=== PATIENT | female | born 1980 | race African-American/Black ===

== ENCOUNTER 2016-10-06 06:55 | Inpatient (IN) | payer OTHER ==
[2016-10-06] MEDS ORDERED: ELECTROLYTE-148 SOLN 1,000 ML IV SCH ×2 (07:45→09:00)
[2016-10-06 07:52] VITALS: BMI 38.3
[2016-10-06] MEDS ORDERED: CITRIC ACID/SODIUM CITRATE 30 ML UNIT-DOSE CUP PO ONE (08:12)
--- NOTE | 2016-10-06 08:25 | HP ---
Past Medical History - Admission Chief Complaint: Here for repeat c section History of Present Illness: 36 y/o with SIUP at 39 weeks gestation here for scheduled repeat section. Pt with h/o 3 prior sections. complicated only by asthma - well controlled. +FM, no VB/LOF/CTx today. History Source: Patient, Medical Record Limitations to Obtaining History: No Limitations - Past Medical History Cardiovascular: No: AFIB, HTN Gastrointestinal: No: Constipation, GERD ...: 6 ...Para: 3 ...Term: 3 ...: 0 ...Spon : 1 ...Induced : 1 ...Multiple Gestation: 0 ...LMP: 01/18/16 ... Weeks Gestation by Dates: 37 ...EDC by Dates: 10/27/16 ...EDC by Sono: 10/13/16 Heme/Onc: Yes: Anemia (0) Infectious Disease: No: AIDS, HIV Psych: Yes: Other (pt with h/o of daughter/father in car accident) Endocrine: No: Diabetes Mellitus, Hypothyroidism - Past Surgical History Past Surgical History: Yes: (X3) Hx Myomectomy: No Hx Transabdominal Cerclage: No - Smoking History Smoking history: Never smoked - Alcohol/Substance Use Hx Alcohol Use: No - Social History Usual Living Arrangement: Yes: With Spouse ADL: Independent History of Recent Travel: No Home Medications - Allergies Allergies/Adverse Reactions: Allergies Allergy/AdvReac Type Severity Reaction Status Date / Time walnut AdvReac Mild Itching Verified 10/06/16 07:37 - Home Medications Home Medications: Ambulatory Orders Albuterol Sulfate Inhaler - [Ventolin Hfa Inhaler -] 1 puff IH PRN 09/29/16 Review of Systems - Review of Systems Constitutional: reports: No Symptoms Eyes: reports: No Symptoms HENT: reports: No Symptoms Neck: reports: No Symptoms Cardiovascular: reports: No Symptoms Respiratory: reports: No Symptoms Gastrointestinal: reports: No Symptoms Genitourinary: reports: No Symptoms Breasts: reports: No Symptoms Reported Musculoskeletal: reports: No Symptoms Integumentary: reports: No Symptoms Neurological: reports: No Symptoms Endocrine: reports: No Symptoms Hematology/Lymphatic: reports: No Symptoms Psychiatric: reports: No Symptoms Physical Exam - Maternity Vital Signs: Vital Signs Temperature 97.6 F 01/25/17 07:40 Pulse Rate 75 10/06/16 07:40 Respiratory Rate 18 10/06/16 07:40 Blood Pressure 102/67 10/06/16 07:40 O2 Sat by Pulse Oximetry (%) Constitutional: Yes: Well Nourished, No Distress, Calm HENT: Yes: Atraumatic, Normocephalic Neck: Yes: Supple, Trachea Midline Cardiovascular: Yes: Regular Rate and Rhythm Lungs: Clear to auscultation - Abdominal Exam/OB Fundal Height: 40 Number of Fetuses: Single Presentation: Vertex Contractions: No Category: I - Vaginal Exam/OB Amniotic Membrane Status: Intact - Physical Exam Psychiatric: Yes: Alert, Oriented Hemorrhage Risk Assessment - Risk Factors Medium Risk Factors: Yes: Prior , uterine surgery,or multiple laparotomies High Risk Factors: Yes: None Risk Score: 1 Risk Level: Medium Risk Assessment/Plan 36 y/o with h/o 3 prior sections here for scheduled repeat section - FHTS cat 1 - admit to L&D - start IV fluids, NPO, SCDs, anesthesia and nursing aware - Moreno catheter - routine care
[2016-10-06] MEDS ORDERED: METHYLERGONOVINE MALEATE 0.2 MG/1 ML AMP IM PRN (10:05)
[2016-10-06] MEDS ORDERED: IBUPROFEN 600 MG TABLET (FP) PO PRN (10:05)
[2016-10-06] MEDS ORDERED: OXYTOCIN 20 UNITS in 0.9% NS 1,000 ML IV SCH (10:15)
[2016-10-06] MEDS ORDERED: morphine SULFATE/Preservative Free 0.5 MG/ML (1cc Syringe) EP ONE (10:20)
[2016-10-06] MEDS ORDERED: ONDANSETRON 4 MG/2 ML VIAL IVPB PRN (10:20)
--- NOTE | 2016-10-06 11:18 | OP ---
Operative Note - Note: Operative Date: 10/06/16 Operation: repeat low transverse section Findings: gravid uterus normal b/l tubes and ovaries Post-Operative Diagnosis: Same as Pre-op Surgeon: Chloe Fortune Volleyball Assistant Coach: Shy Nguyen Anesthesiologist/TELECOMMUNICATOR SUPERVISOR: Catarino Green Anesthesia: Spinal Estimated Blood Loss (mls): 800 Operative Report Dictated: Yes
--- NOTE | 2016-10-06 11:19 | PN ---
Delivery - Delivery Section: Repeat Type of Anesthesia: Spinal Episiotomy/Laceration: None EBL (cc): 800 Delivery, Single - Stages of Labor Date of Delivery: 10/06/16 Time of Delivery: 09:23 Time Placenta Delivered: :24 Placenta: Yes: Manual Removal - Condition of Fat Purification Worker/Appeals Court Associate Justice Present: Yes Name: Anabell Brar Gender: Female Weight: 6 lb 15 oz Position: Right, OT Total Hours ROM (Hrs/Mins): 3 Minutes - 1 Minute Total Score: 9 5 Minutes Total Score: 9 - Feeding Plan Initial Plan: Exclusive throughout hospitalization Remarks - Remarks Remarks: Uncomplicated repeat c section.
[2016-10-06] MEDS: IBUPROFEN 800 MG/8 ML IJ IVPB PRN ×2 (12:02→21:32)
[2016-10-06] MEDS ORDERED: TUBERCULIN PPD 5 TU/0.1ML SYRINGE (IN PATIENT USE ONLY) ID ONE (16:30)
[2016-10-06] MEDS: CEFAZOLIN 1 GM/D5W 50 ML IVPB SCH (17:34)
[2016-10-06] MEDS: SODIUM CHLORIDE 0.9%/KCL 1,000 ML IV SCH (20:00)
[2016-10-06] MEDS: POTASSIUM CHLORIDE TABS 20 MEQ TABLET.ER (FP) PO SCH (21:33)
[2016-10-07] MEDS: CEFAZOLIN 1 GM/D5W 50 ML IVPB SCH ×2 (01:44→10:33)
[2016-10-07] MEDS: ACETAMINOPHEN 325 MG TABLET (FP) PO PRN ×2 (04:30→13:29)
[2016-10-07] MEDS: IBUPROFEN 600 MG TABLET (FP) PO PRN ×3 (04:30→19:15)
[2016-10-07 07:33] LABS: BASOPHIL 0.6 % (0-2.0); MCH 25.9 pg (25.7-33.7); MCHC 32.7 g/dl (32.0-36.0); MEAN CELL VOLUME 79.2 fl (80-96); MEAN PLT VOLUME 9.2 fl (7.5-11.1); NEUTROPHILS 81.6 % (42.8-82.8); PLATELET COUNT 177 K/MM3 (134-434); RDW 14.5 % (11.6-15.6)
[2016-10-07] MEDS ORDERED: ALBUTEROL SO4 6.7 GM HFA INHALER IH PRN (07:45)
--- NOTE | 2016-10-07 08:00 | PN ---
Post Progress Note - Subjective Subjective: 36 yo Para 4, status post repeat , seen and evaluated. She c/o difficulty in breathing; h/o Asthma. Type of Delivery: Repeat C/S Vital Signs: Vital Signs Temperature 97.9 F 10/07/16 06:00 Pulse Rate 82 10/07/16 06:00 Respiratory Rate 20 10/07/16 06:00 Blood Pressure 94/56 10/07/16 06:00 O2 Sat by Pulse Oximetry (%) 99 10/06/16 10:45 Breast Exam: Yes: Soft Uterus: Yes: Fundus Firm Incision: Yes: Dressing dry and intact Abdomen/GI: Yes: Abdomen soft Lochia: Yes: Rubra Lochia, amount: Small Extremities: Yes: Calves non-tender Perineum: Yes: Intact Activity: Other (Lying in bed) Assessment/Plan Status post repeat Personal h/o Asthma Albuterol inhaler Ambulation Analgesia PRN pain Continue Post op care
[2016-10-07] MEDS: SODIUM CHLORIDE 0.9%/KCL 1,000 ML IV SCH ×2 (08:05→11:24)
[2016-10-07] MEDS: IBUPROFEN 800 MG/8 ML IJ IVPB PRN (08:22)
[2016-10-07] MEDS ORDERED: DIPHTH,PERTUSS(ACELL),TET 0.5 ML DISP.SYRIN IM ONE (10:00)
[2016-10-07] MEDS ORDERED: BISACODYL 10 MG SUPP.RECT RC PRN (10:05)
[2016-10-07] MEDS: POTASSIUM CHLORIDE TABS 20 MEQ TABLET.ER (FP) PO SCH ×2 (10:33→22:02)
--- NOTE | 2016-10-07 12:16 | OP ---
DATE OF OPERATION: 10/06/2016 PREOPERATIVE DIAGNOSIS: History of prior section. POSTOPERATIVE DIAGNOSIS: History of prior section. PROCEDURE: Repeat low transverse section. SURGEON: Chloe Fortune DO ASSISTANT WOMENS VOLLEYBALL COACH: Shy Nguyen MD ANESTHESIA: Spinal anesthesia administered by Catarino Green MD ESTIMATED BLOOD LOSS: 800 mL. SPECIMENS: Included placenta and cord blood collection. COMPLICATIONS: None. Sponge, needle, and instrument count correct. FINDINGS: Included normal bilateral tubes and ovaries, gravid uterus. Otherwise, normal female anatomy. DISPOSITION: Stable to PACU. BRIEF HISTORY AND PROCEDURE: The patient is a 36-year-old female with a history of 3 prior sections who had been counseled on her options in the office and elected to undergo a repeat section on October 06, 2016. The patient was admitted on October 06, 2016. Consents were signed. The patient was then taken back to the operating room where she was given spinal anesthesia by Dr. Green without difficulty. A Moreno catheter was placed under sterile conditions, and the patient was prepped and draped in the usual sterile fashion. A hard time-out was performed. A Pfannenstiel skin incision was then created in the skin with a scalpel and carried to the underlying layer of rectus fascia with the scalpel as well as with the Bovie. The fascia was tented up, and the rectus muscles were dissected off from the rectus fascia with the Bovie and midline of the rectus muscles identified, elevated, and entered sharply, and then the peritoneum was dissected sharply to allow for adequate room for delivery. The bladder blade was inserted. A transverse incision was then created on the uterus, which was carried in a superolateral direction bluntly. The was then delivered from the right occiput transverse position, without difficulty. The shoulders and body delivered without incident. The cord was clamped twice and cut in between, and the infant was taken over to the warmer to be assessed by Neonatology staff. The Apgars were 9/9. cord blood was collected. The placenta was then delivered manually. The uterus was exteriorized from the abdomen, inspected, and cleared of all amniotic membrane and debris with a dry lap sponge. The hysterotomy was reapproximated in a single- layer closure using 1 Vicryl suture, and several [id number] interrupted sutures were used for hemostasis. The posterior cul-de-sac was suctioned. Bilateral tubes and ovaries were noted to be normal. The uterus was placed back into the abdomen. Bilateral gutters were inspected and cleared of all debris. The peritoneum was reapproximated using 3-0 Vicryl in a running fashion. The musculature was reapproximated in a single interrupted suture. The fascia was reapproximated using 1 Vicryl in a running fashion. The subcutaneous tissue was irrigated and reapproximated using a Biosyn suture and then the skin was reapproximated using 3-0 Vicryl in a subcuticular fashion. The patient tolerated the procedure well and is recovering in stable condition in at the time of this dictation. Sponge, needle, and instrument count was reported to be correct. CHLOE FORTUNE DO /[id number] MTDD
[2016-10-07] MEDS: SIMETHICONE 80 MG TAB.CHEW (FP) PO PRN ×2 (13:27→19:16)
--- NOTE | 2016-10-07 14:57 | PN ---
Progress Note (short form) - Note Progress Note: Anesthesia POD#1 S/P under spinal anesthesia and duramoph Patient is doing well,no N/V,moving extremities well VSS No complication to anesthesia seen. Danyelle Najera.
[2016-10-07] MEDS: oxyCODONE HCL 5 MG TABLET PO PRN ×2 (15:01→19:15)
[2016-10-08] MEDS: oxyCODONE HCL 5 MG TABLET PO PRN ×5 (00:22→21:58)
[2016-10-08] MEDS: SIMETHICONE 80 MG TAB.CHEW (FP) PO PRN ×4 (00:22→21:57)
[2016-10-08] MEDS: IBUPROFEN 600 MG TABLET (FP) PO PRN ×4 (00:22→21:58)
[2016-10-08 08:35] LABS: CREATININE 0.6 mg/dL (0.55-1.02)
[2016-10-08] MEDS: POTASSIUM CHLORIDE TABS 20 MEQ TABLET.ER (FP) PO SCH ×2 (09:50→21:53)
--- NOTE | 2016-10-08 13:01 | PN ---
Post Progress Note - Subjective Subjective: Pt seen/evaluated and doing well. Pain controlled, ambulating, voiding, tolerating diet. No CP/SOB/F/C/FERRIS. VB minimal. Type of Delivery: Repeat C/S Vital Signs: Vital Signs Temperature 97.6 F 10/08/16 08:44 Pulse Rate 85 10/08/16 08:44 Respiratory Rate 18 10/08/16 08:44 Blood Pressure 115/70 10/08/16 08:44 O2 Sat by Pulse Oximetry (%) 99 10/06/16 10:45 Breast Exam: Yes: Soft Uterus: Yes: Fundus below umbilicus Incision: Yes: Sutures intact Abdomen/GI: Yes: Passing flatus, Tolerating PO. No: Abdominal Distention, Tender Lochia: Yes: Rubra Lochia, amount: Small Extremities: Yes: Calves non-tender, Edema (trace LE edema) Perineum: Yes: Intact Activity: Ambulating - Labs Labs: CBC WBC 13.0 K/mm3 (4.0-10.0) H 10/07/16 06:45 RBC 3.67 M/mm3 (3.60-5.2) 10/07/16 06:45 Hgb 9.5 GM/dL (10.7-15.3) L 10/07/16 06:45 Hct 29.0 % (32.4-45.2) L 10/07/16 06:45 MCV 79.2 fl (80-96) L 10/07/16 06:45 MCHC 32.7 g/dl (32.0-36.0) 10/07/16 06:45 RDW 14.5 % (11.6-15.6) 10/07/16 06:45 Plt Count 177 K/MM3 (134-434) 10/07/16 06:45 MPV 9.2 fl (7.5-11.1) 10/07/16 06:45 Neutrophils % 81.6 % (42.8-82.8) 10/07/16 06:45 Lymphocytes % 8.4 % (8-40) D 10/07/16 06:45 Monocytes % 5.4 % (3.8-10.2) 10/07/16 06:45 Eosinophils % 4.0 % (0-4.5) 10/07/16 06:45 Basophils % 0.6 % (0-2.0) 10/07/16 06:45 Assessment/Plan 36 y/o POD#2 s/p repeat section, stable - AFVSS - Hgb 9.5 post op, pt stable, continue vitamins - regular diet, PO pain meds, - ambulation - discharge home in a.m.
--- NOTE | 2016-10-08 13:01 | DS ---
Physical Exam-MEDICAL RECORDS TECH Vital Signs: Vital Signs Temperature 97.6 F 10/08/16 08:44 Pulse Rate 85 10/08/16 08:44 Respiratory Rate 18 10/08/16 08:44 Blood Pressure 115/70 10/08/16 08:44 O2 Sat by Pulse Oximetry (%) 99 10/06/16 10:45 Constitutional: Yes: Well Nourished, No Distress, Calm Eyes: Yes: Conjunctiva Clear, EOM Intact HENT: Yes: Atraumatic, Normocephalic Neck: Yes: Supple, Trachea Midline Cardiovascular: Yes: Regular Rate and Rhythm Respiratory: Yes: Regular, CTA Bilaterally Gastrointestinal: Yes: Normal Bowel Sounds, Soft ....Post : Yes: Uterus firm, Uterus non-tender Wound/Incision: Yes: Clean/Dry, Well Approximated, Sutures Intact Neurological: Yes: Alert, Oriented Psychiatric: Yes: Alert, Oriented Labs: CBC, BMP 10/07/16 06:45 10/08/16 06:00 Delivery - Delivery Section: Repeat, Low Flap Transverse Type of Anesthesia: Spinal Episiotomy/Laceration: None EBL (cc): 800 Delivery, Single - Stages of Labor Date of Delivery: 10/06/16 Time of Delivery: 09:23 Time Placenta Delivered: 09:24 Placenta: Yes: Manual Removal - Condition of Escort Car Driver/Actuarial Technician Present: Yes Name: Anabell Brar Gender: Female Weight: 6 lb 15 oz Position: Right, OT Total Hours ROM (Hrs/Mins): 3 Minutes - 1 Minute Total Score: 9 5 Minutes Total Score: 9 - Feeding Plan Initial Plan: Exclusive throughout hospitalization Discharge Summary Reason For Visit: ADMIT C/SECTION Procedures: Principal: repeat section Hospital Course: Patient admitted on 10/06/16 for scheduled repeat section. Pt underwent uncomplicated procedure (see dictated op report). The patient recovered without incident and met all post op milestones by post op day 3. The patient was tolerating diet, ambulating, voiding and passing flatus and was discharged home in stable condition on post op day 3. Condition: Good - Instructions Diet, Activity, Other Instructions: Physical activity Resume your normal everyday activity as tolerated no heavy lifting or exercise until seen by your surgeon. You may walk unlimited julieta of and climb stairs. You may resume driving the car when you feel safe and comfortable behind the wheel. No sexual activity as instructed. Wound care If you have a bandage, leave it on, and keep dry for 48-72 hours. After that time discard the outer bandage. If they are tapes on the skin under the out of bandage leave them in place. They will peel off in the next 7 to 10 days. Do Not Peel them off. You may shower the day after surgery. If there are tapes present on the skin, you may shower over them. Diet There are no dietary restrictions. Eat healthy, high-fiber foods. Drink 6 to 8 glasses of liquid each day. This will assist in keeping your bowels are regular. Pain management You may take Tylenol or acetaminophen or Ibuprofen (for example, Motrin, Advil etc.) from my pain prescription medication is ordered should be taken as prescribed for moderate to severe pain. Call MD for any of the following: Severe pain not relieved by medication Fever of 101 or higher Excessive bleeding or drainage on dressing Inability to urinate Referrals: Chloe Fortune DO [Staff Physician] - Disposition: HOME - Home Medications Comprehensive Discharge Medication List: Ambulatory Orders Albuterol Sulfate Inhaler - [Ventolin Hfa Inhaler -] 1 puff IH PRN 09/29/16
[2016-10-08] MEDS: ACETAMINOPHEN 325 MG TABLET (FP) PO PRN (15:16)
[2016-10-09] MEDS: SODIUM CHLORIDE 0.9%/KCL 1,000 ML IV SCH (01:22)
[2016-10-09] MEDS: ACETAMINOPHEN 325 MG TABLET (FP) PO PRN ×2 (01:37→12:03)
[2016-10-09] MEDS: SIMETHICONE 80 MG TAB.CHEW (FP) PO PRN ×3 (01:37→12:04)
[2016-10-09] MEDS: oxyCODONE HCL 5 MG TABLET PO PRN ×2 (01:38→08:13)
[2016-10-09 07:31] LABS: BASOPHIL 0.8 % (0-2.0); EOSINOPHIL 7.1 % (0-4.5); MCH 25.9 pg (25.7-33.7); MCHC 32.7 g/dl (32.0-36.0); MEAN CELL VOLUME 79.3 fl (80-96); MEAN PLT VOLUME 9.4 fl (7.5-11.1); NEUTROPHILS 69.9 % (42.8-82.8); PLATELET COUNT 173 K/MM3 (134-434); RDW 14.8 % (11.6-15.6); WHITE BLOOD COUNT 8.9 K/mm3 (4.0-10.0)
[2016-10-09] MEDS: IBUPROFEN 600 MG TABLET (FP) PO PRN ×2 (08:13→12:03)
[2016-10-09 08:27] VITALS: BP 126/70; PULSE 79; TEMP 97.2
[2016-10-09] MEDS: POTASSIUM CHLORIDE TABS 20 MEQ TABLET.ER (FP) PO SCH (09:32)
--- NOTE | 2016-10-12 14:11 | PATH ---
Surgical Pathology Report Patient Name: ALETHEA BOYCE Med. Rec. #: [id number] /Age/Gender: 1980 (Age: 36) / F Account: [id number] Location: [facility] OBS/PACKAGING CLERK Taken: 10/06/2016 Received: 10/07/2016 Reported: 10/12/2016 Physicians: Chloe Fortune M.D. Specimen(s) Received PLACENTA Clinical History Previous c/section x3 2004, 2006, 2011, 39 weeks gestation Scheduled repeat c/section Final Diagnosis PLACENTA, DELIVERY: FOCALLY DISRUPTED THIRD TRIMESTER PLACENTA WITH MILD INCREASE IN PREVILLOUS, PERIVILLOUS, AND PRECHORIONIC FIBRIN DEPOSITION, THREE VESSEL UMBILICAL CORD, AND PLACENTAL MEMBRANES WITH FOCAL AMNION HYPERPLASIA. Electronically Signed Brian Maria M.D. Gross Description The specimen is received fresh, labeled "placenta" and is a 459 gram, 16.5 x 15.0 x 2.7 cm placenta with attached membranes and umbilical cord. The attached membranes are norman, thickened and insert marginally. The umbilical cord measures 34 cm in length and averages 0.9 cm in diameter. The cord inserts eccentrically, 5 cm. to the nearest margin. No true knots or strictures are identified. Cut surface of the umbilical cord reveals 3 vessels. The surface is ferrer-blue with fibrin deposition and appropriate caliber vessels. The maternal surface is red-brown with focal defects. Sectioning reveals red-brown, spongy parenchyma. No focal lesions are identified. [employer] Cable Jointer sections are submitted in three cassettes as follows: 1- membrane rolls and umbilical cord; 2-3- full thickness sections of placenta. 10/11/2016 [facility]
== END 2016-10-09 14:00 | disposition home or self-care (01) | DRG 540 ==
LOC: JLDR 06:55 → J3W 11:21
PROVIDERS: ADMIT Obstetrics & Gynecology; ATTEND Obstetrics & Gynecology
PROC: 10D00Z1 Extraction of Products of Conception, Low, Open Approach (ICD-10-PCS; principal; 2016-10-06)
DX: O34.211 Maternal care for low transverse scar from previous cesarean delivery (principal); O75.89 Other specified complications of labor and delivery; J45.909 Unspecified asthma, uncomplicated; Z3A.39 39 weeks gestation of pregnancy; Z37.0 Single live birth
CPT/HCPCS: 36415; 80048; 84132; 85025; 88307-TC; 90715

== ENCOUNTER 2017-10-24 06:05 | Inpatient (IN) | payer OTHER ==
[~2017-10-24 06:05] MED LIST: CITRIC ACID/SODIUM CITRATE 30 ML UNIT-DOSE CUP PO ONE; ELECTROLYTE-148 SOLN 500 ML IV ONE
[2017-10-24] MEDS ORDERED: ELECTROLYTE-148 SOLN 1,000 ML IV SCH ×2 (06:35→07:15)
[2017-10-24 06:38] VITALS: BMI 37.5
[2017-10-24] MEDS ORDERED: METHYLERGONOVINE MALEATE 0.2 MG/1 ML AMP IM PRN (07:15)
[2017-10-24] MEDS ORDERED: BENZOCAINE 20% 57 GM BOTTLE TP PRN (07:15)
[2017-10-24] MEDS ORDERED: BENZOCAINE 28 GM HEMORRHOIDAL OINTMENT PR PRN (07:15)
[2017-10-24] MEDS ORDERED: WITCH HAZEL 50% (TUCKS) 40 PAD/JAR PAD TP PRN (07:15)
[2017-10-24] MEDS ORDERED: diphenhydrAMINE HCL 25 MG CAPSULE (FP) PO PRN (07:15)
--- NOTE | 2017-10-24 07:26 | HP ---
Past Medical History - Primary Care Physician PCP:: Shy Nguyen - Admission Chief Complaint: Previous Sectionx 4. voluntary sterilization. multiparity History of Present Illness: 37 yo g7 P 4 023 with previous CS x 4 EDC 10/29/17 ega 39.1 week admitted for elective section no rom no bleeding no FERRIS Pt had 8 yo at age 8 spont AB x 1 Vtop x 1 History Source: Patient - Past Medical History Cardiovascular: No: AFIB, HTN ...: 7 ...Para: 4 ...Term: 4 ...: 0 ...Spon : 1 ...Induced : 1 ...Multiple Gestation: 0 ...EDC by Sono: 10/29/17 Heme/Onc: Yes: Anemia (0) Psych: Yes: Other (pt with h/o of daughter/father in car accident) Endocrine: No: Diabetes Mellitus, Hypothyroidism - Past Surgical History Past Surgical History: Yes: (X3) Hx Myomectomy: No Hx Transabdominal Cerclage: No - Smoking History Smoking history: Never smoked Have you smoked in the past 12 months: No - Alcohol/Substance Use Hx Alcohol Use: No History of Substance Use: reports: None - Social History Usual Living Arrangement: Yes: With Spouse ADL: Independent History of Recent Travel: No Home Medications - Allergies Allergies/Adverse Reactions: Allergies Allergy/AdvReac Type Severity Reaction Status Date / Time No Known Drug Allergies Allergy Unknown Verified 10/06/16 09:07 walnut AdvReac Mild Itching Verified 10/06/16 07:37 cat AdvReac Mild Uncoded 10/24/17 06:28 cat,dog,grass, & trees AdvReac Mild Uncoded 10/24/17 06:28 - Home Medications Home Medications: Ambulatory Orders Albuterol Sulfate Inhaler - [Ventolin Hfa Inhaler -] 2 puff IH PRN 09/29/16 Tablet 1 tablet PO DAILY 10/24/17 Review of Systems - Review of Systems Constitutional: reports: No Symptoms Eyes: reports: No Symptoms HENT: reports: No Symptoms Neck: reports: No Symptoms Cardiovascular: reports: No Symptoms Respiratory: reports: No Symptoms Gastrointestinal: reports: No Symptoms Genitourinary: reports: No Symptoms Breasts: reports: No Symptoms Reported Musculoskeletal: reports: No Symptoms Integumentary: reports: No Symptoms Neurological: reports: No Symptoms Endocrine: reports: No Symptoms Hematology/Lymphatic: reports: No Symptoms Psychiatric: reports: No Symptoms Physical Exam - Maternity Vital Signs: Vital Signs Temperature 97.9 F 10/24/17 06:05 Pulse Rate 85 10/24/17 06:05 Respiratory Rate 18 10/24/17 06:05 Blood Pressure 93/61 10/24/17 06:05 O2 Sat by Pulse Oximetry (%) Constitutional: Yes: Well Nourished, No Distress, Obese HENT: Yes: WNL Neck: Yes: WNL Cardiovascular: Yes: WNL, Regular Rate and Rhythm Lungs: Clear to auscultation Breast(s): Yes: WNL - Abdominal Exam/OB Fundal Height: 40 Number of Fetuses: Single Presentation: Vertex Contractions: No Category: I Decelerations: None Hemorrhage Risk Assessment - Risk Factors Medium Risk Factors: Yes: Prior , uterine surgery,or multiple laparotomies, Greater than 4 previous births Risk Score: 2 Risk Level: High Risk Assessment/Plan Prev CS x 4 Vtop ab x 1 spont ab x 1 IUP at 39 week Voluntary sterilization Plan Repeat CS and bilateral salpingectomy
[2017-10-24] MEDS ORDERED: PROPOFOL 20 ML ONE (07:59)
[2017-10-24] MEDS ORDERED: SUCCINYLCHOLINE CHLORIDE 200 MG/10 ML VIAL ONE (08:00)
[2017-10-24] MEDS ORDERED: ePHEDrine SULFATE 50 MG/1 ML AMPULE ONE (08:01)
[2017-10-24] MEDS ORDERED: morphine SULFATE/Preservative Free 0.5 MG/ML (1cc Syringe) ONE (08:01)
[2017-10-24] MEDS: OXYTOCIN 20 UNITS in 0.9% NS 20 UNIT/1,000 ML INFUS.BAG IV SCH ×3 (08:45→14:00)
[2017-10-24] MEDS ORDERED: OXYTOCIN 10 UNITS/ML VIAL ONE (08:48)
[2017-10-24] MEDS ORDERED: ceFAZolin SODIUM 1 GM VIAL ONE (08:52)
[2017-10-24] MEDS ORDERED: DEXAMETHASONE SOD PHOSPHATE 4 MG/1 ML VIAL ONE (08:52)
[2017-10-24] MEDS ORDERED: SODIUM CHLORIDE 0.9% P/F 10 ML VIAL IJ ONE (08:52)
[2017-10-24] MEDS ORDERED: KETOROLAC TROMETHAMINE 30 MG/1 ML VIAL ONE (08:52)
[2017-10-24] MEDS ORDERED: TUBERCULIN PPD 5 TU/0.1ML SYRINGE (IN PATIENT USE ONLY) ID ONE (09:00)
[2017-10-24 09:14] LABS: ARTERIAL BLD GAS O2 SATURATION 18.4 % (90-98.9); ARTERIAL BLOOD GAS PCO2 70.5 mmHg (35-45); ARTERIAL BLOOD GAS PO2 17.5 mmHg (80-100); ARTERIAL BLOOD GAS pH 7.14 (7.35-7.45)
[2017-10-24 09:20] LABS: VENOUS PC02 54.4 mmHg (38-52); VENOUS PH 7.24 (7.32-7.42)
[2017-10-24 09:21] LABS: VENOUS PO2 29.7 mmHg (28-48)
[2017-10-24] MEDS ORDERED: morphine SULFATE/Preservative Free 0.5 MG/ML (1cc Syringe) EP ONE (09:57)
[2017-10-24] MEDS ORDERED: ONDANSETRON 4 MG/2 ML VIAL IVPUSH PRN (09:57)
--- NOTE | 2017-10-24 14:12 | OP ---
Operative Note - Note: Operative Date: 10/24/17 Pre-Operative Diagnosis: Mutliparity, previous , voluntary sterilization Operation: section, bilateral tubal ligation Post-Operative Diagnosis: Same as Pre-op Surgeon: Shy Nguyen Wiener Packer: Erik King Anesthesia: Spinal Estimated Blood Loss (mls): 100 Fluid Volume Replaced (mls): 1,000 Operative Report Dictated: Yes
--- NOTE | 2017-10-24 14:13 | SURG ---
Surgery Audience Development Manager Note Audience Development Manager: Erik King PA-C Date of Service: 10/24/17 Diagnosis: Mutliparity, previous , voluntary sterilization Procedure: section and bilateral tubal ligation I was present for the entirety of the operative procedure. For further detail, please refer to operative report. Visit type - Case Type Case Type: Scheduled Admission - New patient This patient is new to me today: Yes Date on this admission: 10/24/17
--- NOTE | 2017-10-24 16:53 | OP ---
DATE OF OPERATION: 10/24/2017 PREOPERATIVE DIAGNOSIS: Previous section x4 and multiparity, voluntary sterilization. OPERATION: Repeat section as well as bilateral salpingectomy. POSTOPERATIVE DIAGNOSIS: Previous section x4 and multiparity, voluntary sterilization. Live female infant. SURGEON: Shy Nguyen M.D. HEAD SAWYER AUTOMATIC: Sharon Lee ANESTHESIA: Spinal. FINDINGS: Live female infant delivered in OP position. DESCRIPTION OF PROCEDURE: Patient was taken to the operating room, placed in supine position. Prepped and draped in usual sterile fashion after spinal anesthesia had been given. Timeout was performed in accordance with hospital regulation. Pfannenstiel skin incision was made through the patient's previous scar. Cautery was then used to go through layers of abdominal wall towards the fascia. Fascia was cut in the midline, and cautery was then used to open the fascia in smiling fashion. Jing was then used to bluntly and sharply dissect the rectus muscle of the fascia. The muscle split in the midline. Peritoneal cavity was then entered and carried upward and downward. The bladder retractor was then placed. Vesicouterine reflection was then entered. Scalpel was then used to make a low transverse uterine incision. Incision was carried upward using bandage scissors. Moderate meconium was seen. A live female infant was delivered in OP position. Nose to mouth suction performed. cord clamping was done. The cord was clamped and cut. Cord blood obtained. The placenta was manually extracted from the uterus. The uterus was exteriorized and cleaned with clean lap pads. The uterine incision was then closed using 0 Biosyn suture, first layer continuous interlocking. Infant was handed to senior programmer. Second layer imbricating the first layer. Hemostasis was achieved. Tubes were bilaterally grasped and Ligasure was then used to remove both left and right fallopian tubes using coagulation and cutting. Hemostasis was achieved. Uterus was then interiorized. Abdominal cavity cleaned with clean lap pads. Two ovaries were noted to be normal. Abdominal sweep done. Peritoneum then closed using 0 Biosyn suture. Muscles approximated in the midline using 0 Biosyn suture. Fascia was then closed using 0 Vicryl suture in 2 parts. Subcutaneous was then closed using 0 Biosyn suture, and skin was then closed using 3-0 Vicryl in a subcuticular fashion. Wound was washed and dressed. Patient tolerated the procedure well. Estimated blood 700 mL. [place] SPRING/[id number] MTDD
[2017-10-24] MEDS: IBUPROFEN 800 MG/8 ML IJ IVPB PRN (22:31)
[2017-10-25] MEDS: IBUPROFEN 800 MG/8 ML IJ IVPB PRN (05:49)
[2017-10-25] MEDS ORDERED: BISACODYL 10 MG SUPP.RECT RC PRN (07:15)
[2017-10-25 08:42] LABS: HEMATOCRIT 26.7 % (32.4-45.2); HEMOGLOBIN 8.4 GM/dL (10.7-15.3); MCHC 31.5 g/dl (32.0-36.0); MEAN CELL VOLUME 76.2 fl (80-96); PLATELET COUNT 171 K/MM3 (134-434); RBC 3.51 M/mm3 (3.60-5.2); RDW 15.2 % (11.6-15.6)
--- NOTE | 2017-10-25 08:54 | PN ---
Progress Note, Physician Chief Complaint: s/p c section under spinal anesthesia History of Present Illness: post op day one - Current Medication List Current Medications: Active Medications Acetaminophen (Tylenol -) 650 mg PO Q4H PRN PRN Reason: FEVER Benzocaine (Americaine 20% [place] -) 1 spray TP PRN PRN PRN Reason: Pain - Topical Benzocaine (Americaine Ointment -) 1 applic MO PRN PRN PRN Reason: Pain - Topical Bisacodyl (Dulcolax Suppository -) 10 mg RC PRN PRN PRN Reason: CONSTIPATION Diphenhydramine HCl (Benadryl -) 25 mg PO Q6H PRN PRN Reason: FOR ITCHING Diphenhydramine HCl (Benadryl Injection -) 25 mg IVPUSH Q4H PRN PRN Reason: Pruritis Diphtheria/Tetanus/Acell Pertussis (Boostrix -) 0.5 ml IM .ONCE ONE Stop: 10/25/17 10:01 Oxytocin/Sodium Chloride (Normal Saline+20 Units Oxytocin -) 20 unit in 1,000 mls @ 125 mls/hr IV ASDIR [facility] Last Admin: 10/24/17 14:00 Dose: 125 mls/hr Ibuprofen (Caldolor Injection -) 800 mg IVPB Q6H PRN PRN Reason: Fever - If PO not effective. Last Admin: 10/25/17 05:49 Dose: 800 mg Ibuprofen (Motrin -) 600 mg PO Q4H PRN PRN Reason: PAIN LEVEL 1 - 3 Influenza Virus Vaccine Quadrival (Fluarix Quad [id number] Syringe) 60 mcg IM .ONCE ONE Stop: 10/25/17 10:01 Methylergonovine Maleate (Methergine Injection -) 0.2 mg IM Q4H PRN PRN Reason: EXCESSIVE BLEEDING Ondansetron HCl (Zofran Injection) 4 mg IVPUSH Q4H PRN PRN Reason: NAUSEA Oxycodone HCl (Roxicodone -) 5 mg PO Q4H PRN PRN Reason: PAIN LEVEL 1-5 Oxycodone HCl (Roxicodone -) 10 mg PO Q4H PRN PRN Reason: PAIN LEVEL 6-10 Pneumococcal 13-Valent Conj Vacc (Prevnar 13 Syringe -) 0.5 ml IM .ONCE ONE Stop: 10/25/17 10:01 Senna/Docusate Sodium (Pericolace -) 1 tablet PO HS PRN PRN Reason: CONSTIPATION Simethicone (Mylicon -) 80 mg PO Q4H PRN PRN Reason: GAS Witch Brii/Glycerin (Tucks Pads -) 1 pad TP PRN PRN PRN Reason: Pain - Topical - Objective Vital Signs: Vital Signs Temperature 98.1 F 10/25/17 06:00 Pulse Rate 65 10/25/17 06:00 Respiratory Rate 20 10/25/17 06:00 Blood Pressure 100/54 10/25/17 06:00 O2 Sat by Pulse Oximetry (%) 99 10/24/17 10:45 Constitutional: Yes: Well Nourished Cardiovascular: Yes: WNL Respiratory: Yes: WNL Gastrointestinal: Yes: WNL Labs: CBC, BMP 10/25/17 08:00 Assessment/Plan Patient doing well, no nausea vomiting headache or other anesthetic complications. Pain controlled. Dept of anesthesia will sign off care at this time
[2017-10-25] MEDS: oxyCODONE HCL 5 MG TABLET PO PRN ×4 (09:11→21:56)
[2017-10-25] MEDS: SIMETHICONE 80 MG TAB.CHEW (FP) PO PRN ×4 (09:11→21:56)
[2017-10-25] MEDS: ACETAMINOPHEN 325 MG TABLET (FP) PO PRN ×4 (09:12→21:59)
[2017-10-25] MEDS ORDERED: PNEUMOC 13-VAL CONJ-DIP CRM/PF 0.5 ML DISP.SYRIN IM ONE (10:00)
[2017-10-25] MEDS ORDERED: DIPHTH,PERTUSS(ACELL),TET 0.5 ML DISP.SYRIN IM ONE (10:00)
[2017-10-25] MEDS ORDERED: FLU VACC QS2017-18 36MOS UP/PF 60 MCG/0.5 ML SYRINGE IM ONE (10:00)
[2017-10-25] MEDS: OXYTOCIN 20 UNITS in 0.9% NS 20 UNIT/1,000 ML INFUS.BAG IV SCH (11:08)
[2017-10-25] MEDS: IBUPROFEN 600 MG TABLET (FP) PO PRN ×2 (16:11→22:00)
[2017-10-25] MEDS: SENNOSIDES/DOCUSATE COMBO (SENNA PLUS) TABLET (UD) PO PRN (22:00)
--- NOTE | 2017-10-26 02:24 | PN ---
Progress Note (SOAP) - Subjective Chief Complaint: Pt doing well - Current Medications Current Medications: Active Medications Acetaminophen (Tylenol -) 650 mg PO Q4H PRN PRN Reason: FEVER Last Admin: 10/25/17 21:59 Dose: 650 mg Benzocaine (Americaine 20% [place] -) 1 spray TP PRN PRN PRN Reason: Pain - Topical Benzocaine (Americaine Ointment -) 1 applic [place] PRN PRN PRN Reason: Pain - Topical Bisacodyl (Dulcolax Suppository -) 10 mg RC PRN PRN PRN Reason: CONSTIPATION Diphenhydramine HCl (Benadryl -) 25 mg PO Q6H PRN PRN Reason: FOR ITCHING Diphenhydramine HCl (Benadryl Injection -) 25 mg IVPUSH Q4H PRN PRN Reason: Pruritis Oxytocin/Sodium Chloride (Normal Saline+20 Units Oxytocin -) 20 unit in 1,000 mls @ 125 mls/hr IV ASDIR AL Last Admin: 10/25/17 11:08 Dose: Not Given Ibuprofen (Caldolor Injection -) 800 mg IVPB Q6H PRN PRN Reason: Fever - If PO not effective. Last Admin: 10/25/17 05:49 Dose: 800 mg Ibuprofen (Motrin -) 600 mg PO Q4H PRN PRN Reason: PAIN LEVEL 1 - 3 Last Admin: 10/25/17 22:00 Dose: 600 mg Methylergonovine Maleate (Methergine Injection -) 0.2 mg IM Q4H PRN PRN Reason: EXCESSIVE BLEEDING Ondansetron HCl (Zofran Injection) 4 mg IVPUSH Q4H PRN PRN Reason: NAUSEA Oxycodone HCl (Roxicodone -) 5 mg PO Q4H PRN PRN Reason: PAIN LEVEL 1-5 Last Admin: 10/25/17 21:56 Dose: 5 mg Oxycodone HCl (Roxicodone -) 10 mg PO Q4H PRN PRN Reason: PAIN LEVEL 6-10 Last Admin: 10/25/17 17:35 Dose: 10 mg Senna/Docusate Sodium (Pericolace -) 1 tablet PO HS PRN PRN Reason: CONSTIPATION Last Admin: 10/25/17 22:00 Dose: 1 tablet Simethicone (Mylicon -) 80 mg PO Q4H PRN PRN Reason: GAS Last Admin: 10/25/17 21:56 Dose: 80 mg Witch Brii/Glycerin (Tucks Pads -) 1 pad TP PRN PRN PRN Reason: Pain - Topical - Objective Vital Signs: Vital Signs Temperature 98.4 F 10/25/17 22:00 Pulse Rate 68 10/25/17 22:00 Respiratory Rate 18 10/25/17 22:00 Blood Pressure 124/73 10/25/17 22:00 O2 Sat by Pulse Oximetry (%) 99 10/24/17 10:45 Constitutional: Yes: Well Nourished, No Distress Gastrointestinal: Yes: WNL, Normal Bowel Sounds, Soft, Abdomen, Obese ....Post : Yes: Uterus firm, Uterus non-tender Breast(s): Yes: WNL Musculoskeletal: Yes: WNL Extremities: Yes: WNL Edema: Yes Edema: LLE: Trace, RLE: Trace Wound/Incision: Yes: Clean/Dry, Well Approximated, Steri Strips, Dressing Removed. No: Open to air Labs Lab Results: CBC, BMP 10/25/17 08:00 Assessment/Plan Prev CS x 4 Vtop ab x 1 spont ab x 1 POD 1 Plan OOB percocet
[2017-10-26] MEDS: SIMETHICONE 80 MG TAB.CHEW (FP) PO PRN ×4 (03:25→19:53)
[2017-10-26] MEDS: oxyCODONE HCL 5 MG TABLET PO PRN ×4 (03:25→19:53)
[2017-10-26] MEDS: ACETAMINOPHEN 325 MG TABLET (FP) PO PRN ×4 (03:29→19:55)
[2017-10-26] MEDS: IBUPROFEN 600 MG TABLET (FP) PO PRN ×3 (03:30→17:45)
[2017-10-26] MEDS: ALBUTEROL SO4 0.083% IH SOL 2.5 MG/3 ML VIAL.NEB. NEB PRN ×3 (04:45→21:50)
--- NOTE | 2017-10-26 07:06 | PN ---
Progress Note (SOAP) - Subjective Chief Complaint: Pt doing well + mild pain + flatus - Current Medications Current Medications: Active Medications Acetaminophen (Tylenol -) 650 mg PO Q4H PRN PRN Reason: FEVER Last Admin: 10/26/17 03:29 Dose: 650 mg Albuterol Sulfate (Ventolin 0.083% Nebulizer Soln -) 1 amp NEB Q4H PRN PRN Reason: SHORT OF BREATH/WHEEZING Last Admin: 10/26/17 04:45 Dose: 1 amp Benzocaine (Americaine 20% [place] -) 1 spray TP PRN PRN PRN Reason: Pain - Topical Benzocaine (Americaine Ointment -) 1 applic [place] PRN PRN PRN Reason: Pain - Topical Bisacodyl (Dulcolax Suppository -) 10 mg RC PRN PRN PRN Reason: CONSTIPATION Diphenhydramine HCl (Benadryl -) 25 mg PO Q6H PRN PRN Reason: FOR ITCHING Diphenhydramine HCl (Benadryl Injection -) 25 mg IVPUSH Q4H PRN PRN Reason: Pruritis Oxytocin/Sodium Chloride (Normal Saline+20 Units Oxytocin -) 20 unit in 1,000 mls @ 125 mls/hr IV ASDIR AL Last Admin: 10/25/17 11:08 Dose: Not Given Ibuprofen (Caldolor Injection -) 800 mg IVPB Q6H PRN PRN Reason: Fever - If PO not effective. Last Admin: 10/25/17 05:49 Dose: 800 mg Ibuprofen (Motrin -) 600 mg PO Q4H PRN PRN Reason: PAIN LEVEL 1 - 3 Last Admin: 10/26/17 03:30 Dose: 600 mg Methylergonovine Maleate (Methergine Injection -) 0.2 mg IM Q4H PRN PRN Reason: EXCESSIVE BLEEDING Ondansetron HCl (Zofran Injection) 4 mg IVPUSH Q4H PRN PRN Reason: NAUSEA Oxycodone HCl (Roxicodone -) 5 mg PO Q4H PRN PRN Reason: PAIN LEVEL 1-5 Last Admin: 10/26/17 03:25 Dose: 5 mg Oxycodone HCl (Roxicodone -) 10 mg PO Q4H PRN PRN Reason: PAIN LEVEL 6-10 Last Admin: 10/25/17 17:35 Dose: 10 mg Senna/Docusate Sodium (Pericolace -) 1 tablet PO HS PRN PRN Reason: CONSTIPATION Last Admin: 10/25/17 22:00 Dose: 1 tablet Simethicone (Mylicon -) 80 mg PO Q4H PRN PRN Reason: GAS Last Admin: 10/26/17 03:25 Dose: 80 mg Witch Brii/Glycerin (Tucks Pads -) 1 pad TP PRN PRN PRN Reason: Pain - Topical - Objective Vital Signs: Vital Signs Temperature 98.4 F 10/25/17 22:00 Pulse Rate 68 10/25/17 22:00 Respiratory Rate 18 10/25/17 22:00 Blood Pressure 124/73 10/25/17 22:00 O2 Sat by Pulse Oximetry (%) 99 10/24/17 10:45 Constitutional: Yes: Well Nourished, No Distress Neck: Yes: WNL Cardiovascular: Yes: WNL Gastrointestinal: Yes: WNL, Normal Bowel Sounds, Soft ....Post : Yes: Uterus firm Breast(s): Yes: WNL Musculoskeletal: Yes: WNL Extremities: Yes: WNL Edema: No Wound/Incision: Yes: Clean/Dry, Well Approximated, Steri Strips Neurological: Yes: WNL, Alert, Oriented Labs Lab Results: CBC, BMP 10/25/17 08:00 Problem List - Problems (1) Previous delivery, delivered Code(s): O34.219 - MATERNAL CARE FOR UNSP TYPE SCAR FROM PREVIOUS DEL Assessment/Plan SP Prev CS x 5 Vtop ab x 1 spont ab x 1 Pod 2 Anemia Plan Continue present management Ferrous sulfate BID
[2017-10-26] MEDS: OXYTOCIN 20 UNITS in 0.9% NS 20 UNIT/1,000 ML INFUS.BAG IV SCH (11:38)
--- NOTE | 2017-10-26 14:22 | PATH ---
Surgical Pathology Report Patient Name: ALETHEA VILLANUEVA [facility]. Rec. #: [id number] /Age/Gender: 1980 (Age: 37) / F Account: [id number] Location: [facility] OBS/DIRECTOR WEB Taken: 10/24/2017 Received: 10/25/2017 Reported: 10/26/2017 Physicians: Shy Nguyen M.D. Specimen(s) Received A: PLACENTA B: LEFT FALLOPIAN TUBE C: RIGHT FALLOPIAN TUBE Clinical History x4 Final Diagnosis A. PLACENTA, SECTION: 457 g THIRD TRIMESTER PLACENTA WITH TRIVASCULAR UMBILICAL CORD AND UNREMARKABLE PLACENTAL MEMBRANES. B. FALLOPIAN TUBE, LEFT, PARTIAL EXCISION: FULL LUMINAL PORTION OF FALLOPIAN TUBE WITH VASCULAR CONGESTION. C. FALLOPIAN TUBE, RIGHT, PARTIAL EXCISION: FULL LUMINAL PORTION OF FALLOPIAN TUBE WITH VASCULAR CONGESTION. Electronically Signed Sailaja Mayorga M.D. Gross Description A. The specimen is received fresh labeled placenta and is a 457 gram, 18 x 18 x 3 cm. placenta with attached membranes and umbilical cord. The attached membranes are glistening and translucent and insert marginally. The umbilical cord measures 22 cm. in length and averages 1.2 cm. in diameter. The cord inserts eccentrically, 7 cm. to the nearest margin. No true knots or strictures are identified. Cut surface of the umbilical cord reveals 3 vessels. The surface is ferrer-blue with minimal fibrin deposition and appropriate caliber vessels. The maternal surface is red-brown with focal defects. Sectioning reveals red-brown, spongy parenchyma. No lesions are identified. Director Of Programming sections are submitted in three cassettes as follows: 1- membrane rolls and umbilical cord; 2-3- full thickness sections of placenta. B. Received fresh labelled "portion left fallopian tube" is a 6.7 cm long by 0.5 cm in diameter portion of tissue consistent with a portion of fallopian tube. The fimbriated end is present. No focal lesions are identified. Director Of Programming sections are submitted in one cassette C. Received fresh labelled "portion right fallopian tube" is a 8.3 cm long by 0.5 cm in diameter portion of tissue consistent with a portion of fallopian tube. The fimbriated end is present No focal lesions are identified. Director Of Programming sections are submitted in one cassette. STEFFI/10/25/2017 [facility]/10/25/2017
[2017-10-26] MEDS: SENNOSIDES/DOCUSATE COMBO (SENNA PLUS) TABLET (UD) PO PRN (21:30)
[2017-10-27] MEDS: SIMETHICONE 80 MG TAB.CHEW (FP) PO PRN ×6 (01:51→21:26)
[2017-10-27] MEDS: oxyCODONE HCL 5 MG TABLET PO PRN ×6 (01:52→21:27)
[2017-10-27] MEDS: ACETAMINOPHEN 325 MG TABLET (FP) PO PRN ×6 (01:54→21:28)
[2017-10-27] MEDS: IBUPROFEN 600 MG TABLET (FP) PO PRN (01:56)
[2017-10-27] MEDS: ALBUTEROL SO4 0.083% IH SOL 2.5 MG/3 ML VIAL.NEB. NEB PRN ×2 (07:28→14:30)
[2017-10-27 08:57] LABS: HEMATOCRIT 29.1 % (32.4-45.2); HEMOGLOBIN 9.2 GM/dL (10.7-15.3); MCHC 31.5 g/dl (32.0-36.0); MEAN CELL VOLUME 76.4 fl (80-96); MEAN PLT VOLUME 8.8 fl (7.5-11.1); PLATELET COUNT 188 K/MM3 (134-434); RBC 3.81 M/mm3 (3.60-5.2); RDW 15.2 % (11.6-15.6); WHITE BLOOD COUNT 9.4 K/mm3 (4.0-10.0)
--- NOTE | 2017-10-27 09:38 | PN ---
Post Progress Note - Subjective Subjective: 37 yo Para 5 status post repeat , seen and evaluated. Doing well. Post Day: 3 Type of Delivery: Repeat C/S Vital Signs: Vital Signs Temperature 98.2 F 10/26/17 22:00 Pulse Rate 71 10/26/17 22:00 Respiratory Rate 18 10/26/17 22:00 Blood Pressure 132/75 10/26/17 22:00 O2 Sat by Pulse Oximetry (%) 99 10/26/17 21:00 Breast Exam: Yes: Soft Uterus: Yes: Fundus Firm Incision: Yes: Other (Steri strips in place) Abdomen/GI: Yes: Abdomen soft, Tolerating PO Lochia: Yes: Rubra Lochia, amount: Small Extremities: Yes: Calves non-tender Perineum: Yes: Intact Activity: Ambulating - Labs Labs: CBC WBC 9.4 K/mm3 (4.0-10.0) 10/27/17 07:45 RBC 3.81 M/mm3 (3.60-5.2) 10/27/17 07:45 Hgb 9.2 GM/dL (10.7-15.3) L 10/27/17 07:45 Hct 29.1 % (32.4-45.2) L 10/27/17 07:45 MCV 76.4 fl (80-96) L 10/27/17 07:45 MCH 24.0 pg (25.7-33.7) L 10/27/17 07:45 MCHC 31.5 g/dl (32.0-36.0) L 10/27/17 07:45 RDW 15.2 % (11.6-15.6) 10/27/17 07:45 Plt Count 188 K/MM3 (134-434) 10/27/17 07:45 MPV 8.8 fl (7.5-11.1) 10/27/17 07:45 Assessment/Plan Status post repeat Stable Ambulation Analgesia as needed Continue routine post op care
[2017-10-27] MEDS: OXYTOCIN 20 UNITS in 0.9% NS 20 UNIT/1,000 ML INFUS.BAG IV SCH (15:45)
[2017-10-27] MEDS: SENNOSIDES/DOCUSATE COMBO (SENNA PLUS) TABLET (UD) PO PRN (21:28)
[2017-10-28] MEDS: IBUPROFEN 600 MG TABLET (FP) PO PRN (00:49)
[2017-10-28] MEDS: SIMETHICONE 80 MG TAB.CHEW (FP) PO PRN ×3 (02:17→10:40)
[2017-10-28] MEDS: oxyCODONE HCL 5 MG TABLET PO PRN ×3 (02:18→10:40)
[2017-10-28] MEDS: ACETAMINOPHEN 325 MG TABLET (FP) PO PRN ×3 (02:18→10:41)
[2017-10-28] MEDS ORDERED: oxyCODONE HCL 5 MG TABLET ONE (10:29)
[2017-10-28] MEDS: OXYTOCIN 20 UNITS in 0.9% NS 20 UNIT/1,000 ML INFUS.BAG IV SCH (10:40)
[2017-10-28] MEDS: ALBUTEROL SO4 0.083% IH SOL 2.5 MG/3 ML VIAL.NEB. NEB PRN (10:40)
[2017-10-28] MEDS ORDERED: oxyCODONE HCL 5 MG TABLET PO PRN (10:59)
[2017-10-28 11:49] VITALS: BP 138/75; PULSE 76; TEMP 98.2
== END 2017-10-28 13:45 | disposition home or self-care (01) | DRG 540 ==
LOC: JLDR 06:05 → J3W 11:15
PROVIDERS: ADMIT Obstetrics & Gynecology; ATTEND Obstetrics & Gynecology
PROC: 10D00Z1 Extraction of Products of Conception, Low, Open Approach (ICD-10-PCS; principal; 2017-10-24)
PROC: 0UB70ZZ Excision of Bilateral Fallopian Tubes, Open Approach (ICD-10-PCS; 2017-10-24)
DX: O34.211 Maternal care for low transverse scar from previous cesarean delivery (principal); O77.0 Labor and delivery complicated by meconium in amniotic fluid; Z3A.39 39 weeks gestation of pregnancy; Z37.0 Single live birth; Z30.2 Encounter for sterilization
CPT/HCPCS: 36415; 36600; 82803; 85027; 88302-TC; 88307-TC; 90670; 90686; 90715; 94640